=== PATIENT | female | born 1990 | race Caucasian/White ===

== ENCOUNTER 2020-08-26 14:37 | Emergency (ER) | payer MEDICAID ==
[~2020-08-26] VITALS: Ht 170.2 cm; Wt 80.3 kg
[2020-08-26 14:55] VITALS: BP 131/80
== END 2020-08-26 15:16 | disposition home or self-care (01) ==
LOC: ED 14:37
DX: K08.89 Other specified disorders of teeth and supporting structures (principal); Z86.2 Personal history of diseases of the blood and blood-forming organs and certain disorders involving the immune mechanism